=== PATIENT | male | born 1945 | race Caucasian/White ===

== ENCOUNTER 2025-01-31 06:20 | Day surgery (SDC) | payer OTHER ==
[2025-01-30 10:03] VITALS: BMI 25.7
[2025-01-31] MEDS ORDERED: PROPOFOL 40 ML ONE (11:47)
[2025-01-31] MEDS ORDERED: ONDANSETRON 4 MG/2 ML VIAL IVPUSH PRN (12:07)
[2025-01-31] MEDS ORDERED: PROMETHAZINE HCL 25 MG/1 ML VIAL IVPB PRN (12:07)
[2025-01-31] MEDS ORDERED: LIDOCAINE HCL 1%, 10 MG/ML (20ML VIAL) ONE (12:11)
[2025-01-31] MEDS ORDERED: HEPARIN NA (PORCINE) 5,000 UNITS/ML 1ML VIAL ONE (12:11)
[2025-01-31] MEDS: LIDOCAINE HCL 1%, 10 MG/ML (50 mL VIAL) INF ONE ×2 (13:02)
[2025-01-31] MEDS: LACTATED RINGERS SOLUTION 1,000 ML IV SCH (15:00)
[2025-01-31 15:24] VITALS: RESP 18
[2025-01-31 16:23] VITALS: BP 152/72; PULSE 67; TEMP 97.5
== END 2025-01-31 17:14 | disposition home or self-care (01) ==
LOC: JASU-SURG 06:20
PROVIDERS: ATTEND Surgery
PROC: 047N3ZZ Dilation of Left Popliteal Artery, Percutaneous Approach (ICD-10-PCS; 2025-01-31)
PROC: B41DYZZ Fluoroscopy of Aorta and Bilateral Lower Extremity Arteries using Other Contrast (ICD-10-PCS; principal; 2025-01-31 11:30)
DX: I70.244 Atherosclerosis of native arteries of left leg with ulceration of heel and midfoot (principal)
CPT/HCPCS: 36246; 37224; C1885; 76000-TC-FY; 82962; 86850; 86900; 86901; 93005; 93010; 94760; C1760; C1769; C1887